=== PATIENT | female | born 1985 | race Caucasian/White ===

== ENCOUNTER 2017-04-15 11:30 | Emergency (ER) | payer MEDICARE, MEDICAID ==
[~2017-04-15 11:30] MED LIST: ADDERALL XR20 MG PO; ADDERALL10 MG PO; ADVAIR 100/501 E1 INH; ANAPROX DS550 MG PO; ASPIRIN ADULT L81 M2 PO; ATIVAN0.5 MG PO; AUGMENTIN 875 M1 TAB PO; BACTRIM DS 8001 TA1 PO; BENTYL10 MG PO; BUSPAR5 MG PO; CEPHALEXIN500 M1 PO; CIPRO500 MG PO; CLARITIN10 MG PO; CLEOCIN HCL300 MG PO; DIFLUCAN150 MG PO; DOXYCYCLINE100 M3 PO; ESTRADIOL TD; HYDROCODONE BIT1 T11 PO; MACROBID100 M1 PO; METOPROLOL SUCC25 M2 PO; MIRALAX POWDER17 G1 PO; Motrin,Rufen800 MG PO; NAPROSYN500 MG PO; NORCO 325 MG-51 TAB PO; NORCO 5-325 TA1 EACH PO; Orphenadrine C100 MG PO; PREDNISONE10 MG PO; PROVENTIL0.09 MG/A1 INH; PYRIDIUM200 MG PO; RITALIN10 MG PO; TRAMADOL HCL50 MG PO; ULTRAM50 MG PO; VALIUM10 MG PO; VENLAFAXINE HYD75 M3 PO; VIMPAT50 MG PO; XANAX0.5 MG PO; XANAX1 MG PO; ZOFRAN ODT4 MG SL; Zofran4 MG PO
[2017-04-15] MEDS ORDERED: AUGMENTIN 875875 MG PO (12:12)
== END 2017-04-15 12:28 | disposition home or self-care (01) ==
LOC: ED 11:30
DX: J02.9 Acute pharyngitis, unspecified (principal); Z91.018 Allergy to other foods; Z91.040 Latex allergy status

== ENCOUNTER 2017-07-09 12:53 | Emergency (ER) | payer MEDICAID ==
[~2017-07-09] VITALS: Ht 175.2 cm; Wt 73.9 kg
[~2017-07-09 12:53] MED LIST changes: +AUGMENTIN 875875 MG PO
[2017-07-09 13:39] LABS: BILIRUBIN NEGATIVE (NEGATIVE); BLOOD TRACE-INTACT (NEGATIVE); CLARITY SL CLOUDY (CLEAR); COLOR YELLOW (YELLOW); GLUCOSE NEGATIVE (NEGATIVE); KETONE NEGATIVE (NEGATIVE); LEUKO ESTERASE NEGATIVE (NEGATIVE); NITRITE POSITIVE (NEGATIVE); UROBILINOGEN 0.2 E.U./dl (0.2-1.0)
[2017-07-09 14:09] LABS: BACTERIA 2+; EPITHELIAL CELLS TNTC; WBC 0-2 wbc/hpf (0-5)
[2017-07-09] MEDS ORDERED: MACROBID100 M1 PO (14:28)
== END 2017-07-09 15:39 | disposition home or self-care (01) ==
LOC: ED 12:53
PROVIDERS: Nurse Practitioner Family
DX: N39.0 Urinary tract infection, site not specified (principal); F17.200 Nicotine dependence, unspecified, uncomplicated; Z90.710 Acquired absence of both cervix and uterus; Z98.51 Tubal ligation status; Z79.899 Other long term (current) drug therapy; Z79.82 Long term (current) use of aspirin; Z91.040 Latex allergy status; Z91.018 Allergy to other foods

== ENCOUNTER 2017-08-08 10:49 | Emergency (ER) | payer MEDICARE ==
[~2017-08-08] VITALS: Ht 175.2 cm; Wt 61.2 kg
[2017-08-08 11:45] LABS: BASO % 0.4 % (0.0-1.0); EOS # 0.3 10*3/uL (0.0-0.4); EOS % 3.6 % (1.0-4.0); HEMATOCRIT 40.6 % (37.0-47.0); HEMOGLOBIN 13.3 g/dl (12.0-16.0); LYMPH # 1.6 10*3/uL (1.3-4.4); LYMPH % 16.9 % (27.0-41.0); MEAN CELL VOLUME 86.8 fl (81.0-99.0); MEAN CORPUSCULAR HGB 28.4 pg (27.0-31.0); MEAN CORPUSCULAR HGB CONC 32.8 g/dl (33.0-37.0); MEAN PLATELET VOLUME 9.5 fl (9.6-12.3); MONO # 0.7 10*3/uL (0.1-1.0); MONO % 7.5 % (3.0-9.0); NEUT # 6.7 10*3/uL (2.3-7.9); NEUT % 71.4 % (47.0-73.0); PLATELET COUNT AUTOMATED 202 10*3/uL (130-400); RED BLOOD COUNT 4.68 10*6/uL (4.10-5.10); RED CELL DISTRI WIDTH 12.9 % (0-14.5); WHITE BLOOD COUNT 9.4 10*3/uL (4.8-10.8)
[2017-08-08 12:02] LABS: ALBUMIN 3.7 gm/dl (3.1-4.5); ALKALINE PHOSPHATASE 73 U/L (45-117); BUN 14 mg/dl (7-24); CHLORIDE 103 mmol/L (98-107); CREATININE 1.19 mg/dL (0.55-1.02); POTASSIUM 3.7 mmol/L (3.5-5.1); SGOT/AST 9 IU/L (3-35); SGPT/ALT 19 U/L (12-78); SODIUM 141 mmol/L (136-145); TOTAL PROTEIN 7.7 gm/dL (6.4-8.2)
[2017-08-08 12:08] LABS: BILIRUBIN NEGATIVE (NEGATIVE); BLOOD 1+ (NEGATIVE); CLARITY CLOUDY (CLEAR); COLOR YELLOW (YELLOW); GLUCOSE NEGATIVE (NEGATIVE); KETONE NEGATIVE (NEGATIVE); LEUKO ESTERASE 3+ (NEGATIVE); NITRITE POSITIVE (NEGATIVE); PH 6.5 (5.0-9.0); UROBILINOGEN 0.2 E.U./dl (0.2-1.0)
[2017-08-08 12:19] LABS: BACTERIA 3+; RBC 21-30 rbc/hpf (0-2); WBC TNTC wbc/hpf (0-5)
[2017-08-08] MEDS ORDERED: SEPTDS PO (12:49)
[2017-08-08] MEDS ORDERED: Motrin,Rufen800 MG PO (13:02)
== END 2017-08-08 13:01 | disposition home or self-care (01) ==
LOC: ED 10:49
PROVIDERS: Nurse Practitioner Family
DX: N39.0 Urinary tract infection, site not specified (principal); Z91.018 Allergy to other foods; Z91.040 Latex allergy status

== ENCOUNTER 2017-09-15 16:53 | Emergency (ER) | payer MEDICAID ==
[~2017-09-15] VITALS: Ht 175.2 cm; Wt 83.9 kg
[~2017-09-15 16:53] MED LIST changes: +SEPTDS PO
[2017-09-15 17:08] LABS: BILIRUBIN NEGATIVE (NEGATIVE); BLOOD NEGATIVE (NEGATIVE); CLARITY CLEAR (CLEAR); COLOR YELLOW (YELLOW); GLUCOSE NEGATIVE (NEGATIVE); KETONE NEGATIVE (NEGATIVE); LEUKO ESTERASE NEGATIVE (NEGATIVE); NITRITE NEGATIVE (NEGATIVE); SPECIFIC GRAVITY >= 1.030 (1.005-1.030); UROBILINOGEN 0.2 E.U./dl (0.2-1.0)
[2017-09-15 17:15] LABS: BACTERIA 2+; RBC 0-2 rbc/hpf (0-2)
[2017-09-15] MEDS ORDERED: PYRIDIUM200 M1 PO (17:32)
[2017-09-15] MEDS ORDERED: PREDNISONE20 M1 PO (17:32)
[2017-09-15] MEDS ORDERED: VALTREX500 MG PO (17:32)
== END 2017-09-15 18:24 | disposition home or self-care (01) ==
LOC: ED 16:53
PROVIDERS: Physician Assistant
DX: N39.0 Urinary tract infection, site not specified (principal); B02.9 Zoster without complications; Z91.040 Latex allergy status; Z91.018 Allergy to other foods; Z79.82 Long term (current) use of aspirin; Z79.899 Other long term (current) drug therapy; Z98.51 Tubal ligation status; Z90.710 Acquired absence of both cervix and uterus

== ENCOUNTER 2018-02-01 23:47 | Emergency (ER) | payer OTHER ==
[~2018-02-01] VITALS: Ht 175.2 cm; Wt 78.5 kg
[~2018-02-01 23:47] MED LIST changes: +PREDNISONE20 M1 PO; +PYRIDIUM200 M1 PO; +VALTREX500 MG PO
[2018-02-02 00:24] LABS: BASO # 0.1 10*3/uL (0.0-0.1); BASO % 0.6 % (0.0-1.0); EOS # 0.3 10*3/uL (0.0-0.4); HEMATOCRIT 39.2 % (37.0-47.0); HEMOGLOBIN 12.9 g/dl (12.0-16.0); LYMPH # 2.3 10*3/uL (1.3-4.4); LYMPH % 27.8 % (27.0-41.0); MEAN CELL VOLUME 85.8 fl (81.0-99.0); MEAN CORPUSCULAR HGB 28.2 pg (27.0-31.0); MEAN CORPUSCULAR HGB CONC 32.9 g/dl (33.0-37.0); MEAN PLATELET VOLUME 9.8 fl (9.6-12.3); MONO # 0.7 10*3/uL (0.1-1.0); MONO % 8.2 % (3.0-9.0); NEUT # 4.9 10*3/uL (2.3-7.9); NEUT % 59.3 % (47.0-73.0); PLATELET COUNT AUTOMATED 213 10*3/uL (130-400); RED BLOOD COUNT 4.57 10*6/uL (4.10-5.10); RED CELL DISTRI WIDTH 12.3 % (0-14.5); WHITE BLOOD COUNT 8.3 10*3/uL (4.8-10.8)
[2018-02-02 00:41] LABS: ALBUMIN 3.8 gm/dl (3.1-4.5); ALKALINE PHOSPHATASE 79 U/L (45-117); BUN 13 mg/dl (7-24); CHLORIDE 103 mmol/L (98-107); CREATININE 1.01 mg/dL (0.55-1.02); POTASSIUM 3.5 mmol/L (3.5-5.1); SGOT/AST 33 IU/L (3-35); SGPT/ALT 44 U/L (12-78); SODIUM 140 mmol/L (136-145); TOTAL PROTEIN 7.9 gm/dL (6.4-8.2)
[2018-02-02 00:42] LABS: B-hCG (QUALITATIVE) NEGATIVE (NEGATIVE)
[2018-02-02 00:44] LABS: TROPONIN I < 0.015 ng/ml (<0.045)
[2018-02-02] MEDS ORDERED: NEURONTIN300 MG PO (02:01)
== END 2018-02-02 02:31 | disposition home or self-care (01) ==
LOC: ED 23:47
PROVIDERS: Emergency Medicine Emergency Medical Services
DX: R56.9 Unspecified convulsions (principal); G89.29 Other chronic pain; I10 Essential (primary) hypertension; Z90.710 Acquired absence of both cervix and uterus; Z98.51 Tubal ligation status; Z79.899 Other long term (current) drug therapy; Z79.82 Long term (current) use of aspirin; Z91.040 Latex allergy status; Z91.018 Allergy to other foods

== ENCOUNTER 2018-02-20 20:48 | Emergency (ER) | payer OTHER ==
[~2018-02-20] VITALS: Ht 172.7 cm; Wt 77.1 kg
[~2018-02-20 20:48] MED LIST changes: +NEURONTIN300 MG PO
[2018-02-20] MEDS ORDERED: AMOXICILLIN500 M2 PO (21:36)
== END 2018-02-20 21:43 | disposition home or self-care (01) ==
LOC: ED 20:48
DX: J02.9 Acute pharyngitis, unspecified (principal); Z90.710 Acquired absence of both cervix and uterus; Z98.51 Tubal ligation status; Z79.82 Long term (current) use of aspirin; Z79.899 Other long term (current) drug therapy; Z91.040 Latex allergy status; Z91.018 Allergy to other foods

== ENCOUNTER 2018-07-15 07:25 | Emergency (ER) | payer OTHER ==
[~2018-07-15] VITALS: Ht 175.2 cm; Wt 83.0 kg
[~2018-07-15 07:25] MED LIST changes: +AMOXICILLIN500 M2 PO
[2018-07-15] MEDS ORDERED: AMOXICILLI400 MG/51 PO (09:10)
== END 2018-07-15 09:17 | disposition home or self-care (01) ==
LOC: ED 07:25
DX: J02.9 Acute pharyngitis, unspecified (principal); H92.01 Otalgia, right ear; G89.29 Other chronic pain; I10 Essential (primary) hypertension; Z91.018 Allergy to other foods; Z91.040 Latex allergy status; Z79.82 Long term (current) use of aspirin; Z79.899 Other long term (current) drug therapy; Z90.710 Acquired absence of both cervix and uterus

== ENCOUNTER 2018-11-07 07:59 | Emergency (ER) | payer MEDICARE, OTHER ==
[~2018-11-07] VITALS: Ht 175.2 cm; Wt 82.6 kg
[~2018-11-07 07:59] MED LIST changes: +AMOXICILLI400 MG/51 PO; +TRAZODONE50 MG PO; +VISTARIL25 MG PO
[2018-11-07 08:36] LABS: BASO % 0.3 % (0.0-1.0); EOS # 0.1 10*3/uL (0.0-0.4); EOS % 0.5 % (1.0-4.0); HEMATOCRIT 39.4 % (37.0-47.0); HEMOGLOBIN 13.1 g/dl (12.0-16.0); MEAN CELL VOLUME 86.8 fl (81.0-99.0); MEAN CORPUSCULAR HGB 28.9 pg (27.0-31.0); MEAN CORPUSCULAR HGB CONC 33.2 g/dl (33.0-37.0); MEAN PLATELET VOLUME 9.7 fl (9.6-12.3); MONO # 0.9 10*3/uL (0.1-1.0); MONO % 6.8 % (3.0-9.0); NEUT # 10.7 10*3/uL (2.3-7.9); PLATELET COUNT AUTOMATED 192 10*3/uL (130-400); RED BLOOD COUNT 4.54 10*6/uL (4.10-5.10); RED CELL DISTRI WIDTH 12.5 % (0-14.5); WHITE BLOOD COUNT 12.7 10*3/uL (4.8-10.8)
[2018-11-07 08:50] LABS: ALBUMIN 3.7 gm/dl (3.1-4.5); ALKALINE PHOSPHATASE 79 U/L (45-117); BUN 9 mg/dl (7-24); CHLORIDE 105 mmol/L (98-107); CREATININE 0.83 mg/dL (0.55-1.02); POTASSIUM 3.5 mmol/L (3.5-5.1); SGOT/AST 12 IU/L (3-35); SGPT/ALT 25 U/L (12-78); SODIUM 141 mmol/L (136-145); TOTAL PROTEIN 7.6 gm/dL (6.4-8.2)
[2018-11-07] MEDS ORDERED: Motrin,Rufen800 MG PO (10:17)
[2018-11-07] MEDS ORDERED: AMOXICILLIN875 MG PO (10:17)
== END 2018-11-07 10:21 | disposition home or self-care (01) ==
LOC: ED 07:59
PROVIDERS: Emergency Medicine
DX: J02.9 Acute pharyngitis, unspecified (principal); H92.01 Otalgia, right ear; I10 Essential (primary) hypertension; G89.29 Other chronic pain; Z91.040 Latex allergy status; Z91.018 Allergy to other foods; Z79.899 Other long term (current) drug therapy; Z79.82 Long term (current) use of aspirin

== ENCOUNTER 2018-11-23 15:22 | Emergency (ER) | payer MEDICARE, OTHER ==
[~2018-11-23] VITALS: Ht 175.2 cm; Wt 83.0 kg
[~2018-11-23 15:22] MED LIST changes: +AMOXICILLIN875 MG PO
[2018-11-23] MEDS ORDERED: DOXYCYCLINE100 M3 PO (16:40)
== END 2018-11-23 17:05 | disposition home or self-care (01) ==
LOC: ED 15:22
DX: J01.00 Acute maxillary sinusitis, unspecified (principal); Z91.040 Latex allergy status; Z91.018 Allergy to other foods; Z79.899 Other long term (current) drug therapy

== ENCOUNTER 2019-04-28 07:13 | Emergency (ER) | payer OTHER, MEDICARE ==
[~2019-04-28] VITALS: Ht 175.2 cm; Wt 85.3 kg
[2019-04-28] MEDS ORDERED: Motrin,Rufen400 MG PO (09:13)
[2019-04-28] MEDS ORDERED: CYCLOBENZAPRINE10 MG PO (09:13)
[2019-04-28] MEDS ORDERED: TYLENOL325 M1 PO (09:13)
== END 2019-04-28 09:22 | disposition home or self-care (01) ==
LOC: ED 07:13
DX: S06.0X0A Concussion without loss of consciousness, initial encounter (principal); S13.4XXA Sprain of ligaments of cervical spine, initial encounter; F41.9 Anxiety disorder, unspecified; I10 Essential (primary) hypertension; Z90.710 Acquired absence of both cervix and uterus; Z98.51 Tubal ligation status; Z91.040 Latex allergy status; Z79.899 Other long term (current) drug therapy; Z91.018 Allergy to other foods; Z79.82 Long term (current) use of aspirin; V49.88XA Car occupant (driver) (passenger) injured in other specified transport accidents, initial encounter; Y93.89 Activity, other specified; Y92.413 State road as the place of occurrence of the external cause; Y99.9 Unspecified external cause status

== ENCOUNTER 2019-07-31 07:54 | Emergency (ER) | payer MEDICARE, OTHER ==
[~2019-07-31] VITALS: Ht 175.2 cm; Wt 74.8 kg
[~2019-07-31 07:54] MED LIST changes: +CYCLOBENZAPRINE10 MG PO; +Motrin,Rufen400 MG PO; +TYLENOL325 M1 PO
[2019-07-31] MEDS ORDERED: IBU800 M2 PO (09:37)
[2019-07-31] MEDS ORDERED: ZOFRAN4 MG PO (09:37)
== END 2019-07-31 09:50 | disposition home or self-care (01) ==
LOC: ED 07:54
DX: S13.4XXA Sprain of ligaments of cervical spine, initial encounter (principal); I10 Essential (primary) hypertension; G89.29 Other chronic pain; M25.561 Pain in right knee; M54.5 Low back pain; Z90.710 Acquired absence of both cervix and uterus; Z98.51 Tubal ligation status; Z79.82 Long term (current) use of aspirin; Z79.899 Other long term (current) drug therapy; Z91.040 Latex allergy status; Z91.018 Allergy to other foods; V49.88XA Car occupant (driver) (passenger) injured in other specified transport accidents, initial encounter; Y93.89 Activity, other specified; Y92.413 State road as the place of occurrence of the external cause; Y99.9 Unspecified external cause status

== ENCOUNTER 2019-12-12 10:38 | Emergency (ER) | payer OTHER, MEDICARE ==
[~2019-12-12] VITALS: Ht 175.2 cm; Wt 91.2 kg
[~2019-12-12 10:38] MED LIST changes: +IBU800 M2 PO; +ZOFRAN4 MG PO
[2019-12-12] MEDS ORDERED: ROBAXIN-750750 MG PO (14:17)
[2019-12-12] MEDS ORDERED: IBUPROFEN600 MG PO (14:17)
== END 2019-12-12 14:16 | disposition home or self-care (01) ==
LOC: ED 10:38
DX: S13.4XXA Sprain of ligaments of cervical spine, initial encounter (principal); J45.909 Unspecified asthma, uncomplicated; F41.9 Anxiety disorder, unspecified; R56.9 Unspecified convulsions; G43.909 Migraine, unspecified, not intractable, without status migrainosus; Z90.710 Acquired absence of both cervix and uterus; Z91.040 Latex allergy status; Z91.018 Allergy to other foods; Z79.899 Other long term (current) drug therapy; Z79.2 Long term (current) use of antibiotics; V49.9XXA Car occupant (driver) (passenger) injured in unspecified traffic accident, initial encounter; Y93.89 Activity, other specified; Y92.410 Unspecified street and highway as the place of occurrence of the external cause; Y99.8 Other external cause status

== ENCOUNTER 2019-12-22 20:05 | Emergency (ER) | payer MEDICARE, OTHER ==
[~2019-12-22] VITALS: Ht 175.2 cm; Wt 91.2 kg
[~2019-12-22 20:05] MED LIST changes: +IBUPROFEN600 MG PO; +ROBAXIN-750750 MG PO
== END 2019-12-22 22:33 | disposition home or self-care (01) ==
LOC: ED 20:05
DX: S46.911A Strain of unspecified muscle, fascia and tendon at shoulder and upper arm level, right arm, initial encounter (principal); J45.909 Unspecified asthma, uncomplicated; G43.909 Migraine, unspecified, not intractable, without status migrainosus; G89.29 Other chronic pain; I10 Essential (primary) hypertension; F17.200 Nicotine dependence, unspecified, uncomplicated; Z91.040 Latex allergy status; Z91.018 Allergy to other foods; Z79.899 Other long term (current) drug therapy; Z79.82 Long term (current) use of aspirin; Z90.710 Acquired absence of both cervix and uterus; X50.1XXA Overexertion from prolonged static or awkward postures, initial encounter; Y93.72 Activity, wrestling; Y92.89 Other specified places as the place of occurrence of the external cause; Y99.8 Other external cause status

== ENCOUNTER 2020-06-05 09:07 | Emergency (ER) | payer MEDICARE, OTHER ==
[~2020-06-05] VITALS: Ht 175.2 cm; Wt 93.9 kg
[2020-06-05] MEDS ORDERED: TYLENOL325 M1 PO (10:11)
[2020-06-05] MEDS ORDERED: NAPROSYN500 MG PO (10:11)
== END 2020-06-05 10:59 | disposition home or self-care (01) ==
LOC: ED 09:07
DX: S93.601A Unspecified sprain of right foot, initial encounter (principal); S93.401A Sprain of unspecified ligament of right ankle, initial encounter; I10 Essential (primary) hypertension; J45.909 Unspecified asthma, uncomplicated; G43.909 Migraine, unspecified, not intractable, without status migrainosus; F17.200 Nicotine dependence, unspecified, uncomplicated; Z91.040 Latex allergy status; Z91.018 Allergy to other foods; Z79.899 Other long term (current) drug therapy; Z79.82 Long term (current) use of aspirin; W17.2XXA Fall into hole, initial encounter; Y93.89 Activity, other specified; Y92.89 Other specified places as the place of occurrence of the external cause; Y99.8 Other external cause status

== ENCOUNTER 2021-02-15 22:16 | Observation (INO) | payer MEDICARE, OTHER ==
[~2021-02-15] VITALS: Ht 175.3 cm; Wt 95.4 kg
[2021-02-15 22:21] VITALS: BP 121/72
[2021-02-15 22:43] LABS: BILIRUBIN Negative (Negative); BLOOD Negative (Negative); CLARITY Cloudy (Clear); COLOR Yellow (Yellow); GLUCOSE Negative (Negative); KETONE Negative (Negative); LEUKO ESTERASE Trace (Negative); NITRITE Negative (Negative); PH 7.5 (4.5-8.0)
[2021-02-15 22:57] LABS: EPITHELIAL CELLS TNTC
[2021-02-15 23:01] LABS: BASO % 0.5 % (0.0-1.0); EOS # 0.2 10*3/uL (0.0-0.4); EOS % 2.5 % (1.0-4.0); LYMPH # 2.4 10*3/uL (1.3-4.4); LYMPH % 29.7 % (27.0-41.0); MEAN CELL VOLUME 84.8 fl (81.0-99.0); MEAN CORPUSCULAR HGB 27.9 pg (27.0-31.0); MEAN CORPUSCULAR HGB CONC 32.9 g/dl (33.0-37.0); MONO # 0.6 10*3/uL (0.1-1.0); MONO % 7.9 % (3.0-9.0); NEUT # 4.8 10*3/uL (2.3-7.9); NEUT % 59.2 % (47.0-73.0); PLATELET COUNT AUTOMATED 246 10*3/uL (130-400); RED BLOOD COUNT 4.48 10*6/uL (4.10-5.10); RED CELL DISTRI WIDTH 12.8 % (0-14.5); WHITE BLOOD COUNT 8.1 10*3/uL (4.8-10.8)
[2021-02-15 23:17] LABS: ALBUMIN 3.5 gm/dl (3.1-4.5); ALKALINE PHOSPHATASE 89 U/L (45-117); BUN 16 mg/dl (7-24); CHLORIDE 106 mmol/L (98-107); CREATININE 0.88 mg/dL (0.55-1.02); LIPASE 108 U/L (73-393); POTASSIUM 3.7 mmol/L (3.5-5.1); SGOT/AST 24 IU/L (3-35); SGPT/ALT 36 U/L (12-78); SODIUM 141 mmol/L (136-145); TOTAL PROTEIN 7.8 gm/dL (6.4-8.2)
[2021-02-16] VITALS (9 sets, daily range): BP systolic 111–129; BP diastolic 65–80
[2021-02-16 06:10] LABS: BASO % 0.5 % (0.0-1.0); EOS # 0.2 10*3/uL (0.0-0.4); EOS % 2.7 % (1.0-4.0); HEMATOCRIT 36.6 % (37.0-47.0); LYMPH # 2.7 10*3/uL (1.3-4.4); LYMPH % 41.1 % (27.0-41.0); MEAN CELL VOLUME 85.7 fl (81.0-99.0); MEAN CORPUSCULAR HGB 28.1 pg (27.0-31.0); MEAN CORPUSCULAR HGB CONC 32.8 g/dl (33.0-37.0); MEAN PLATELET VOLUME 10.2 fl (9.6-12.3); MONO # 0.5 10*3/uL (0.1-1.0); MONO % 8.2 % (3.0-9.0); NEUT # 3.1 10*3/uL (2.3-7.9); NEUT % 47.3 % (47.0-73.0); PLATELET COUNT AUTOMATED 223 10*3/uL (130-400); RED BLOOD COUNT 4.27 10*6/uL (4.10-5.10); RED CELL DISTRI WIDTH 12.9 % (0-14.5); WHITE BLOOD COUNT 6.6 10*3/uL (4.8-10.8)
[2021-02-16 06:18] LABS: CHLORIDE 108 mmol/L (98-107); CHOLESTEROL 210 mg/dL (<200); HDL CHOLESTEROL 51 mg/dl (40-60); POTASSIUM 3.6 mmol/L (3.5-5.1); SGOT/AST 21 IU/L (3-35); SGPT/ALT 33 U/L (12-78); SODIUM 142 mmol/L (136-145)
[2021-02-16 06:28] LABS: ALBUMIN 3.3 gm/dl (3.1-4.5); ALKALINE PHOSPHATASE 81 U/L (45-117); BUN 13 mg/dl (7-24); LDL CHOLESTEROL 138 mg/dL (9-159); TOTAL PROTEIN 7.1 gm/dL (6.4-8.2); TRIGLYCERIDES 105 mg/dl (<150); VLDL CHOLESTEROL 21 mg/dL (6-40)
[2021-02-17] VITALS (7 sets, daily range): BP systolic 116–126; BP diastolic 55–75
[2021-02-17 06:19] LABS: BASO % 0.5 % (0.0-1.0); EOS # 0.2 10*3/uL (0.0-0.4); EOS % 2.9 % (1.0-4.0); HEMATOCRIT 37.3 % (37.0-47.0); LYMPH # 2.2 10*3/uL (1.3-4.4); LYMPH % 32.8 % (27.0-41.0); MEAN CELL VOLUME 85.2 fl (81.0-99.0); MEAN CORPUSCULAR HGB 27.6 pg (27.0-31.0); MEAN CORPUSCULAR HGB CONC 32.4 g/dl (33.0-37.0); MONO # 0.6 10*3/uL (0.1-1.0); MONO % 8.7 % (3.0-9.0); NEUT # 3.7 10*3/uL (2.3-7.9); NEUT % 54.9 % (47.0-73.0); PLATELET COUNT AUTOMATED 225 10*3/uL (130-400); RED BLOOD COUNT 4.38 10*6/uL (4.10-5.10); RED CELL DISTRI WIDTH 12.7 % (0-14.5); WHITE BLOOD COUNT 6.7 10*3/uL (4.8-10.8)
[2021-02-17 06:28] LABS: BUN 13 mg/dl (7-24); CHLORIDE 107 mmol/L (98-107); POTASSIUM 3.6 mmol/L (3.5-5.1); SODIUM 141 mmol/L (136-145)
[2021-02-17] MEDS ORDERED: IBU800 MG PO (12:59)
== END 2021-02-17 13:30 | disposition home or self-care (01) ==
LOC: ED 22:16 → EDHOLD 02-16 02:05 → 4E 02-16 02:05
PROVIDERS: Emergency Medicine; Hospitalist; Internal Medicine; ADMIT Internal Medicine; ATTEND Internal Medicine
DX: K80.10 Calculus of gallbladder with chronic cholecystitis without obstruction (principal); K29.70 Gastritis, unspecified, without bleeding; F41.9 Anxiety disorder, unspecified; F31.9 Bipolar disorder, unspecified; E83.41 Hypermagnesemia; E66.9 Obesity, unspecified; E78.5 Hyperlipidemia, unspecified; Z68.31 Body mass index [BMI] 31.0-31.9, adult; M54.5 Low back pain; Z95.1 Presence of aortocoronary bypass graft; Z90.710 Acquired absence of both cervix and uterus

== ENCOUNTER 2021-05-30 16:45 | Emergency (ER) | payer MEDICARE, OTHER ==
[~2021-05-30] VITALS: Ht 175.2 cm; Wt 90.7 kg
[~2021-05-30 16:45] MED LIST changes: +IBU800 MG PO
[2021-05-30 17:46] LABS: BASO % 0.2 % (0.0-1.0); EOS # 0.1 10*3/uL (0.0-0.4); EOS % 1.1 % (1.0-4.0); HEMATOCRIT 39.5 % (37.0-47.0); LYMPH # 1.2 10*3/uL (1.3-4.4); LYMPH % 10.1 % (27.0-41.0); MEAN CORPUSCULAR HGB 28.1 pg (27.0-31.0); MEAN CORPUSCULAR HGB CONC 31.9 g/dl (33.0-37.0); MEAN PLATELET VOLUME 10.1 fl (9.6-12.3); MONO # 0.6 10*3/uL (0.1-1.0); MONO % 4.9 % (3.0-9.0); NEUT # 10.1 10*3/uL (2.3-7.9); NEUT % 83.3 % (47.0-73.0); PLATELET COUNT AUTOMATED 232 10*3/uL (130-400); RED BLOOD COUNT 4.49 10*6/uL (4.10-5.10); WHITE BLOOD COUNT 12.1 10*3/uL (4.8-10.8)
[2021-05-30 18:04] LABS: ALBUMIN 4.2 gm/dl (3.1-4.5); ALKALINE PHOSPHATASE 85 U/L (45-117); BUN 12 mg/dl (7-24); CHLORIDE 107 mmol/L (98-107); CREATININE 0.75 mg/dL (0.55-1.02); LIPASE 96 U/L (73-393); POTASSIUM 3.5 mmol/L (3.5-5.1); SGOT/AST 14 IU/L (3-35); SGPT/ALT 25 U/L (12-78); SODIUM 139 mmol/L (136-145); TOTAL PROTEIN 7.9 gm/dL (6.4-8.2)
[2021-05-30 18:08] LABS: TROPONIN I < 0.015 ng/ml (<0.045)
== END 2021-05-30 23:39 | disposition left against medical advice (07) ==
LOC: ED 16:45
PROVIDERS: Emergency Medicine
DX: F41.9 Anxiety disorder, unspecified (principal); R07.89 Other chest pain; Z91.018 Allergy to other foods; Z79.899 Other long term (current) drug therapy; Z79.82 Long term (current) use of aspirin; Z90.711 Acquired absence of uterus with remaining cervical stump; Z98.51 Tubal ligation status

== ENCOUNTER 2022-03-12 17:07 | Emergency (ER) | payer MEDICARE, MEDICAID ==
[~2022-03-12] VITALS: Ht 175.2 cm; Wt 97.5 kg
== END 2022-03-12 17:35 | disposition left against medical advice (07) ==
LOC: ED 17:07
DX: Z53.21 Procedure and treatment not carried out due to patient leaving prior to being seen by health care provider (principal)

== ENCOUNTER 2022-05-11 16:46 | Emergency (ER) | payer MEDICAID ==
[~2022-05-11] VITALS: Ht 175.2 cm; Wt 97.5 kg
[2022-05-11] MEDS ORDERED: KEPPRA100 MG/1 M PO (17:02)
[2022-05-11] MEDS ORDERED: ZOLOFT50 MG PO (18:09)
[2022-05-11] MEDS ORDERED: ADDERALL15 MG PO (18:09)
[2022-05-11] MEDS ORDERED: ZANAFLEX CAPSULE4 MG PO (18:09)
[2022-05-11] MEDS ORDERED: REXULTI3 MG PO (18:09)
[2022-05-11 18:31] LABS: BASO % 0.5 % (0.0-1.0); EOS # 0.1 10*3/uL (0.0-0.4); EOS % 1.7 % (1.0-4.0); LYMPH # 1.9 10*3/uL (1.3-4.4); LYMPH % 29.3 % (27.0-41.0); MEAN CELL VOLUME 85.3 fl (81.0-99.0); MEAN CORPUSCULAR HGB 28.4 pg (27.0-31.0); MEAN CORPUSCULAR HGB CONC 33.3 g/dl (33.0-37.0); MEAN PLATELET VOLUME 10.3 fl (9.6-12.3); MONO # 0.5 10*3/uL (0.1-1.0); MONO % 8.1 % (3.0-9.0); NEUT # 3.9 10*3/uL (2.3-7.9); NEUT % 60.2 % (47.0-73.0); PLATELET COUNT AUTOMATED 204 10*3/uL (130-400); RED BLOOD COUNT 4.69 10*6/uL (4.10-5.10); RED CELL DISTRI WIDTH 12.5 % (0-14.5); WHITE BLOOD COUNT 6.4 10*3/uL (4.8-10.8)
[2022-05-11 18:52] LABS: ALKALINE PHOSPHATASE 77 U/L (45-117); BUN 10 mg/dl (7-24); CHLORIDE 109 mmol/L (98-107); POTASSIUM 3.4 mmol/L (3.5-5.1); SGOT/AST 22 IU/L (3-35); SGPT/ALT 28 U/L (12-78); SODIUM 140 mmol/L (136-145); TOTAL PROTEIN 7.6 gm/dL (6.4-8.2)
[2022-05-11] MEDS ORDERED: KEPPRA1000 MG PO ×3 (19:20→19:43)
[2022-05-11] MEDS ORDERED: ONDANSETRON4 MG SL (19:43)
[2022-05-12] MEDS ORDERED: ONDANSETRON4 MG SL (09:17)
[2022-05-12] MEDS ORDERED: KEPPRA1000 MG PO (09:19)
== END 2022-05-11 19:35 | disposition home or self-care (01) ==
LOC: ED 16:46
PROVIDERS: Nurse Practitioner Family
DX: R56.9 Unspecified convulsions (principal); Z91.040 Latex allergy status; Z91.018 Allergy to other foods; Z79.899 Other long term (current) drug therapy; Z98.51 Tubal ligation status; Z90.710 Acquired absence of both cervix and uterus

== ENCOUNTER 2022-11-06 12:10 | Emergency (ER) | payer OTHER ==
[~2022-11-06] VITALS: Ht 175.2 cm; Wt 99.8 kg
[~2022-11-06 12:10] MED LIST changes: +ADDERALL15 MG PO; +KEPPRA100 MG/1 M PO; +KEPPRA1000 MG PO; +ONDANSETRON4 MG SL; +REXULTI3 MG PO; +ZANAFLEX CAPSULE4 MG PO; +ZOLOFT50 MG PO
[2022-11-06 12:53] LABS: BASO % 0.4 % (0.0-1.0); EOS # 0.1 10*3/uL (0.0-0.4); EOS % 2.8 % (1.0-4.0); HEMATOCRIT 39.8 % (37.0-47.0); LYMPH # 1.4 10*3/uL (1.3-4.4); LYMPH % 29.8 % (27.0-41.0); MEAN CELL VOLUME 85.4 fl (81.0-99.0); MEAN CORPUSCULAR HGB 28.5 pg (27.0-31.0); MEAN CORPUSCULAR HGB CONC 33.4 g/dl (33.0-37.0); MEAN PLATELET VOLUME 9.9 fl (9.6-12.3); MONO # 0.4 10*3/uL (0.1-1.0); MONO % 7.8 % (3.0-9.0); NEUT # 2.7 10*3/uL (2.3-7.9); NEUT % 58.8 % (47.0-73.0); PLATELET COUNT AUTOMATED 192 10*3/uL (130-400); RED BLOOD COUNT 4.66 10*6/uL (4.10-5.10); RED CELL DISTRI WIDTH 13.2 % (0-14.5); WHITE BLOOD COUNT 4.6 10*3/uL (4.8-10.8)
[2022-11-06 13:11] LABS: ALKALINE PHOSPHATASE 69 U/L (46-116); BUN 12 mg/dl (9-23); CHLORIDE 105 mmol/L (98-107); POTASSIUM 3.8 mmol/L (3.4-5.1); SGPT/ALT 25 U/L (10-49); TOTAL PROTEIN 7.1 gm/dL (6.0-8.0)
[2022-11-06] MEDS ORDERED: VIBRAMYCIN100 MG PO (13:36)
== END 2022-11-06 13:41 | disposition home or self-care (01) ==
LOC: ED 12:10
PROVIDERS: Nurse Practitioner Family
DX: L02.416 Cutaneous abscess of left lower limb (principal); Z91.041 Radiographic dye allergy status; Z91.018 Allergy to other foods; Z90.710 Acquired absence of both cervix and uterus; Z98.51 Tubal ligation status; F12.90 Cannabis use, unspecified, uncomplicated

== ENCOUNTER 2023-06-03 16:53 | Emergency (ER) | payer OTHER ==
[~2023-06-03] VITALS: Wt 99.8 kg
[~2023-06-03 16:53] MED LIST changes: +VIBRAMYCIN100 MG PO
[2023-06-03] MEDS ORDERED: NAPROSYN500 MG PO (19:44)
[2023-06-03] MEDS ORDERED: CYCLOBENZAPRINE5 M3 PO (19:44)
== END 2023-06-03 19:47 | disposition home or self-care (01) ==
LOC: ED 16:53
DX: M54.2 Cervicalgia (principal); M25.511 Pain in right shoulder; Z91.040 Latex allergy status; Z91.018 Allergy to other foods; Z90.710 Acquired absence of both cervix and uterus; Z98.51 Tubal ligation status; F12.90 Cannabis use, unspecified, uncomplicated

== ENCOUNTER → 2023-06-25 | Day surgery (SDC) | payer OTHER ==
[2023-06-21 13:09] VITALS: BP 118/61
[2023-06-21 14:09] LABS: BASO % 0.6 % (0.0-1.0); EOS # 0.2 10*3/uL (0.0-0.4); EOS % 2.8 % (1.0-4.0); HEMATOCRIT 39.3 % (37.0-47.0); LYMPH # 1.9 10*3/uL (1.3-4.4); LYMPH % 29.8 % (27.0-41.0); MEAN CELL VOLUME 85.1 fl (81.0-99.0); MEAN CORPUSCULAR HGB 28.4 pg (27.0-31.0); MEAN CORPUSCULAR HGB CONC 33.3 g/dl (33.0-37.0); MEAN PLATELET VOLUME 9.9 fl (9.6-12.3); MONO # 0.4 10*3/uL (0.1-1.0); MONO % 6.9 % (3.0-9.0); NEUT # 3.8 10*3/uL (2.3-7.9); NEUT % 59.7 % (47.0-73.0); PLATELET COUNT AUTOMATED 217 10*3/uL (130-400); RED BLOOD COUNT 4.62 10*6/uL (4.10-5.10); WHITE BLOOD COUNT 6.3 10*3/uL (4.8-10.8)
[2023-06-21 14:21] LABS: ACT PARTIAL THROMBO TIME 25.9 SECONDS (20.0-32.1)
[~2023-06-25] VITALS: Ht 175.2 cm; Wt 96.2 kg
[~2023-06-25] MED LIST changes: +'CLONIDINE0.1 MG PO; +CEFDINIR250 MG/5 M PO; +CYCLOBENZAPRINE5 M3 PO; +HYDROCODON-ACE118 ML PO; +HYDROXYZINE PAM50 MG PO; +MINIPRESS2 M1 PO; +MYRBETRIQ25 M1 PO; +PAXIL20 M1 PO
[2023-06-25 10:00] VITALS: BP 114/69
[2023-06-25 10:15] VITALS: BP 134/84
[2023-06-25 10:30] VITALS: BP 142/95
[2023-06-25 10:45] VITALS: BP 132/79
[2023-06-25 11:00] VITALS: BP 138/85
== END ==
LOC: SDC 06-21 13:15
PROVIDERS: ATTEND Specialist
DX: J35.01 Chronic tonsillitis (principal); J03.01 Acute recurrent streptococcal tonsillitis; F31.9 Bipolar disorder, unspecified; G43.909 Migraine, unspecified, not intractable, without status migrainosus; F17.200 Nicotine dependence, unspecified, uncomplicated; Z90.49 Acquired absence of other specified parts of digestive tract; Z90.710 Acquired absence of both cervix and uterus; Z98.890 Other specified postprocedural states

== ENCOUNTER 2023-06-27 16:11 | Emergency (ER) | payer OTHER ==
[~2023-06-27] VITALS: Ht 175.2 cm; Wt 96.2 kg
[~2023-06-27 16:11] MED LIST changes: -'CLONIDINE0.1 MG PO; -CEFDINIR250 MG/5 M PO; -HYDROCODON-ACE118 ML PO; -HYDROXYZINE PAM50 MG PO; -MINIPRESS2 M1 PO; -MYRBETRIQ25 M1 PO
[2023-06-27 17:31] LABS: BASO % 0.4 % (0.0-1.0); EOS # 0.2 10*3/uL (0.0-0.4); EOS % 1.4 % (1.0-4.0); HEMATOCRIT 41.7 % (37.0-47.0); LYMPH # 1.9 10*3/uL (1.3-4.4); MEAN CELL VOLUME 84.9 fl (81.0-99.0); MEAN CORPUSCULAR HGB 28.5 pg (27.0-31.0); MEAN CORPUSCULAR HGB CONC 33.6 g/dl (33.0-37.0); MEAN PLATELET VOLUME 9.9 fl (9.6-12.3); MONO # 1.2 10*3/uL (0.1-1.0); MONO % 10.7 % (3.0-9.0); NEUT % 70.3 % (47.0-73.0); PLATELET COUNT AUTOMATED 246 10*3/uL (130-400); RED BLOOD COUNT 4.91 10*6/uL (4.10-5.10); RED CELL DISTRI WIDTH 12.8 % (0-14.5); WHITE BLOOD COUNT 11.4 10*3/uL (4.8-10.8)
[2023-06-27 17:51] LABS: ALKALINE PHOSPHATASE 106 U/L (46-116); BUN 10 mg/dl (9-23); CHLORIDE 101 mmol/L (98-107); POTASSIUM 3.4 mmol/L (3.4-5.1); SGPT/ALT 52 U/L (10-49); TOTAL PROTEIN 8.4 gm/dL (6.0-8.0)
[2023-06-27] MEDS ORDERED: CEFDINIR250 MG/5 M PO (17:51)
[2023-06-27] MEDS ORDERED: MYRBETRIQ25 M1 PO (17:51)
[2023-06-27] MEDS ORDERED: HYDROCODON-ACE118 ML PO (17:53)
[2023-06-27] MEDS ORDERED: 'CLONIDINE0.1 MG PO (17:53)
[2023-06-27] MEDS ORDERED: HYDROXYZINE PAM50 MG PO (17:54)
[2023-06-27] MEDS ORDERED: MINIPRESS2 M1 PO (17:55)
== END 2023-06-27 19:38 | disposition home or self-care (01) ==
LOC: ED 16:11
PROVIDERS: Nurse Practitioner Family
DX: G89.18 Other acute postprocedural pain (principal); R07.0 Pain in throat; R50.9 Fever, unspecified; R13.10 Dysphagia, unspecified; F90.9 Attention-deficit hyperactivity disorder, unspecified type; F32.A Depression, unspecified; Z91.040 Latex allergy status; Z91.018 Allergy to other foods; Z79.899 Other long term (current) drug therapy; Z79.2 Long term (current) use of antibiotics; Z90.711 Acquired absence of uterus with remaining cervical stump; Z98.51 Tubal ligation status; Z90.89 Acquired absence of other organs

== ENCOUNTER 2023-06-30 00:46 | Emergency (ER) | payer OTHER ==
[~2023-06-30] VITALS: Ht 175.2 cm; Wt 96.2 kg
[~2023-06-30 00:46] MED LIST changes: +'CLONIDINE0.1 MG PO; +CEFDINIR250 MG/5 M PO; +HYDROCODON-ACE118 ML PO; +HYDROXYZINE PAM50 MG PO; +MINIPRESS2 M1 PO; +MYRBETRIQ25 M1 PO
[2023-06-30 01:15] LABS: BASO # 0.1 10*3/uL (0.0-0.1); BASO % 0.5 % (0.0-1.0); EOS # 0.2 10*3/uL (0.0-0.4); HEMATOCRIT 37.7 % (37.0-47.0); LYMPH # 1.5 10*3/uL (1.3-4.4); LYMPH % 14.7 % (27.0-41.0); MEAN CELL VOLUME 82.7 fl (81.0-99.0); MEAN CORPUSCULAR HGB 28.3 pg (27.0-31.0); MEAN CORPUSCULAR HGB CONC 34.2 g/dl (33.0-37.0); MEAN PLATELET VOLUME 9.7 fl (9.6-12.3); MONO # 0.9 10*3/uL (0.1-1.0); MONO % 8.3 % (3.0-9.0); NEUT # 7.7 10*3/uL (2.3-7.9); NEUT % 74.3 % (47.0-73.0); PLATELET COUNT AUTOMATED 306 10*3/uL (130-400); RED BLOOD COUNT 4.56 10*6/uL (4.10-5.10); RED CELL DISTRI WIDTH 12.4 % (0-14.5); WHITE BLOOD COUNT 10.4 10*3/uL (4.8-10.8)
[2023-06-30 01:26] LABS: ACT PARTIAL THROMBO TIME 24.9 SECONDS (20.0-32.1)
[2023-06-30 01:39] LABS: ALKALINE PHOSPHATASE 100 U/L (46-116); BUN 17 mg/dl (9-23); CHLORIDE 106 mmol/L (98-107); LIPASE 34 U/L (12-53); POTASSIUM 3.2 mmol/L (3.4-5.1); SGPT/ALT 37 U/L (10-49); TOTAL PROTEIN 7.7 gm/dL (6.0-8.0)
[2023-06-30] MEDS ORDERED: ONDANSETRON4 MG SL (03:53)
== END 2023-06-30 04:20 | disposition home or self-care (01) ==
LOC: ED 00:46
PROVIDERS: Internal Medicine
DX: K92.0 Hematemesis (principal); R13.10 Dysphagia, unspecified; J45.909 Unspecified asthma, uncomplicated; F41.9 Anxiety disorder, unspecified; G43.909 Migraine, unspecified, not intractable, without status migrainosus; F90.9 Attention-deficit hyperactivity disorder, unspecified type; F31.9 Bipolar disorder, unspecified; Z91.040 Latex allergy status; Z91.018 Allergy to other foods; Z90.710 Acquired absence of both cervix and uterus; Z98.51 Tubal ligation status; Z90.89 Acquired absence of other organs; F12.90 Cannabis use, unspecified, uncomplicated; F17.200 Nicotine dependence, unspecified, uncomplicated

== ENCOUNTER 2024-01-20 15:14 | Emergency (ER) | payer OTHER ==
[~2024-01-20] VITALS: Ht 175.2 cm; Wt 90.7 kg
[2024-01-20 15:56] LABS: BILIRUBIN Negative (Negative); BLOOD Negative (Negative); CLARITY Clear (Clear); COLOR Yellow (Yellow); GLUCOSE Negative (Negative); KETONE Trace (Negative); LEUKO ESTERASE Negative (Negative); NITRITE Negative (Negative); SPECIFIC GRAVITY 1.025 (1.001-1.030)
[2024-01-20 16:51] LABS: RBC 0-2 rbc/hpf (0-2)
== END 2024-01-20 17:42 | disposition home or self-care (01) ==
LOC: ED 15:14
PROVIDERS: Nurse Practitioner Family
DX: R39.15 Urgency of urination (principal); R30.0 Dysuria; M54.50 Low back pain, unspecified; R35.0 Frequency of micturition; E78.5 Hyperlipidemia, unspecified; F41.9 Anxiety disorder, unspecified; F31.9 Bipolar disorder, unspecified; I10 Essential (primary) hypertension; F17.200 Nicotine dependence, unspecified, uncomplicated; Z91.040 Latex allergy status; Z91.018 Allergy to other foods; Z79.899 Other long term (current) drug therapy; Z79.2 Long term (current) use of antibiotics; Z85.41 Personal history of malignant neoplasm of cervix uteri; Z90.711 Acquired absence of uterus with remaining cervical stump; Z98.51 Tubal ligation status

== ENCOUNTER 2024-04-01 10:28 | Emergency (ER) | payer OTHER ==
[~2024-04-01] VITALS: Ht 172.7 cm; Wt 102.1 kg
[2024-04-01] MEDS ORDERED: IBUPROFEN 800 MG TAB PO ONE (11:15)
[2024-04-01] MEDS ORDERED: MEDROL DOSEPAK4 MG PO (13:08)
== END 2024-04-01 13:19 | disposition home or self-care (01) ==
LOC: ED 10:28
DX: J02.8 Acute pharyngitis due to other specified organisms (principal); Z20.822 Contact with and (suspected) exposure to COVID-19; B97.89 Other viral agents as the cause of diseases classified elsewhere; Z91.040 Latex allergy status; Z91.018 Allergy to other foods; Z79.899 Other long term (current) drug therapy; Z90.711 Acquired absence of uterus with remaining cervical stump; Z98.51 Tubal ligation status

== ENCOUNTER 2024-04-11 20:49 | Emergency (ER) | payer OTHER ==
[~2024-04-11] VITALS: Ht 175.2 cm; Wt 99.8 kg
[~2024-04-11 20:49] MED LIST changes: +MEDROL DOSEPAK4 MG PO
[2024-04-11] MEDS ORDERED: Acetaminophen/Hydrocodone 5 MG/325 MG TABLET PO ONE (21:15)
[2024-04-11] MEDS ORDERED: methylPREDNISolone sod succ 125 MG VIAL IM ONE (22:05)
== END 2024-04-11 22:22 | disposition home or self-care (01) ==
LOC: ED 20:49
DX: M72.2 Plantar fascial fibromatosis (principal); E78.5 Hyperlipidemia, unspecified; F31.9 Bipolar disorder, unspecified; I10 Essential (primary) hypertension; F41.9 Anxiety disorder, unspecified; Z79.899 Other long term (current) drug therapy; Z90.711 Acquired absence of uterus with remaining cervical stump; Z98.51 Tubal ligation status

== ENCOUNTER → 2024-05-06 | Outpatient (CLI) | payer OTHER ==
[2024-05-06 16:03] LABS: BASO % 0.6 % (0.0-1.0); EOS # 0.1 10*3/uL (0.0-0.4); EOS % 1.9 % (1.0-4.0); HEMATOCRIT 39.2 % (37.0-47.0); LYMPH # 1.5 10*3/uL (1.3-4.4); LYMPH % 22.9 % (27.0-41.0); MEAN CELL VOLUME 84.8 fl (81.0-99.0); MEAN CORPUSCULAR HGB 27.9 pg (27.0-31.0); MEAN CORPUSCULAR HGB CONC 32.9 g/dl (33.0-37.0); MEAN PLATELET VOLUME 9.5 fl (9.6-12.3); MONO # 0.5 10*3/uL (0.1-1.0); MONO % 6.8 % (3.0-9.0); NEUT # 4.5 10*3/uL (2.3-7.9); NEUT % 67.5 % (47.0-73.0); PLATELET COUNT AUTOMATED 213 10*3/uL (130-400); RED BLOOD COUNT 4.62 10*6/uL (4.10-5.10); RED CELL DISTRI WIDTH 13.2 % (0-14.5); WHITE BLOOD COUNT 6.7 10*3/uL (4.8-10.8)
[2024-05-06 16:30] LABS: ALKALINE PHOSPHATASE 90 U/L (46-116); BUN 12 mg/dl (9-23); CHLORIDE 104 mmol/L (98-107); POTASSIUM 3.3 mmol/L (3.4-5.1); SGPT/ALT 33 U/L (5-49); TOTAL PROTEIN 7.7 gm/dL (6.0-8.0)
[2024-05-06 17:29] LABS: ACT PARTIAL THROMBO TIME 23.3 SECONDS (20.0-32.1)
[2024-05-08 03:07] LABS: FACTOR VIII ACTIVITY 199 % (56-140); VON WILLEBRAND FACTOR AG 197 % (50-200)
[2024-05-08 06:09] LABS: VON WILLEBRAND ACTIVITY 123 % (50-200)
== END | disposition home or self-care (01) ==
LOC: LAB 15:41
PROVIDERS: ATTEND Internal Medicine
DX: R23.8 Other skin changes (principal)

== ENCOUNTER 2024-06-18 14:56 | Emergency (ER) | payer OTHER ==
[~2024-06-18] VITALS: Ht 175.2 cm; Wt 95.3 kg
[2024-06-18] MEDS ORDERED: PREDNISONE50 MG PO (16:15)
[2024-06-18] MEDS ORDERED: METHOCARBAMOL500 M1 PO (16:15)
[2024-06-18] MEDS ORDERED: methylPREDNISolone sod succ 125 MG VIAL IM ONE (16:15)
[2024-06-18] MEDS ORDERED: Ketorolac Tromethamine 30 MG/ML VIAL IM ONE (16:15)
== END 2024-06-18 16:23 | disposition home or self-care (01) ==
LOC: ED 14:56
DX: S39.012A Strain of muscle, fascia and tendon of lower back, initial encounter (principal); Z79.899 Other long term (current) drug therapy; Z90.710 Acquired absence of both cervix and uterus; Z98.51 Tubal ligation status; X50.9XXA Other and unspecified overexertion or strenuous movements or postures, initial encounter; Y93.89 Activity, other specified; Y92.89 Other specified places as the place of occurrence of the external cause; Y99.8 Other external cause status

== ENCOUNTER → 2024-06-25 | Outpatient (CLI) | payer OTHER ==
[~2024-06-25] MED LIST changes: +METHOCARBAMOL500 M1 PO; +PREDNISONE50 MG PO
== END | disposition home or self-care (01) ==
LOC: RAD 13:52
PROVIDERS: ATTEND Internal Medicine
DX: M54.50 Low back pain, unspecified (principal)

== ENCOUNTER 2025-02-01 13:13 | Emergency (ER) | payer OTHER ==
[2025-02-01] MEDS ORDERED: Ondansetron Hydrochloride 4 MG/2 ML VIAL IV ONE (13:20)
[2025-02-01 13:34] LABS: BASO % 0.4 % (0.0-1.0); EOS # 0.1 10*3/uL (0.0-0.4); EOS % 2.1 % (1.0-4.0); HEMATOCRIT 37.9 % (37.0-47.0); MEAN CELL VOLUME 84.4 fl (81.0-99.0); MEAN CORPUSCULAR HGB 27.4 pg (27.0-31.0); MEAN CORPUSCULAR HGB CONC 32.5 g/dl (33.0-37.0); MEAN PLATELET VOLUME 9.7 fl (9.6-12.3); MONO # 0.4 10*3/uL (0.1-1.0); MONO % 7.9 % (3.0-9.0); NEUT # 2.9 10*3/uL (2.3-7.9); NEUT % 56.4 % (47.0-73.0); PLATELET COUNT AUTOMATED 189 10*3/uL (130-400); RED BLOOD COUNT 4.49 10*6/uL (4.10-5.10); RED CELL DISTRI WIDTH 12.8 % (0-14.5); WHITE BLOOD COUNT 5.2 10*3/uL (4.8-10.8)
[2025-02-01] MEDS ORDERED: IOHEXOL 300 MG/ML 100 ML VIAL IV ONE (13:35)
[2025-02-01 13:59] LABS: ALKALINE PHOSPHATASE 79 U/L (46-116); BUN 10 mg/dl (9-23); CHLORIDE 105 mmol/L (98-107); LIPASE 31 U/L (12-53); POTASSIUM 3.7 mmol/L (3.4-5.1); SGPT/ALT 25 U/L (5-49); TOTAL PROTEIN 7.4 gm/dL (6.0-8.0)
[2025-02-01 15:00] LABS: BILIRUBIN Negative (Negative); BLOOD Negative (Negative); CLARITY Clear (Clear); COLOR Yellow (Yellow); GLUCOSE Negative (Negative); KETONE Negative (Negative); LEUKO ESTERASE Negative (Negative); NITRITE Negative (Negative); SPECIFIC GRAVITY >= 1.030 (1.001-1.030); UROBILINOGEN 0.2 E.U./dl (0.0-1.0)
[2025-02-01 15:22] LABS: EPITHELIAL CELLS 16-20; RBC 0-2 rbc/hpf (0-2); WBC 0-2 wbc/hpf (0-5)
== END 2025-02-01 16:08 | disposition home or self-care (01) ==
LOC: ED 13:13
PROVIDERS: Nurse Practitioner Family
DX: S16.1XXA Strain of muscle, fascia and tendon at neck level, initial encounter (principal); S46.912A Strain of unspecified muscle, fascia and tendon at shoulder and upper arm level, left arm, initial encounter; R42 Dizziness and giddiness; R10.12 Left upper quadrant pain; R11.0 Nausea; E78.5 Hyperlipidemia, unspecified; J45.909 Unspecified asthma, uncomplicated; F41.9 Anxiety disorder, unspecified; G43.909 Migraine, unspecified, not intractable, without status migrainosus; F90.9 Attention-deficit hyperactivity disorder, unspecified type; F31.9 Bipolar disorder, unspecified; Z90.710 Acquired absence of both cervix and uterus; Z90.49 Acquired absence of other specified parts of digestive tract; Z90.89 Acquired absence of other organs; Z79.899 Other long term (current) drug therapy; Z90.711 Acquired absence of uterus with remaining cervical stump; V49.9XXA Car occupant (driver) (passenger) injured in unspecified traffic accident, initial encounter; Y93.89 Activity, other specified; Y92.89 Other specified places as the place of occurrence of the external cause; Y99.8 Other external cause status

== ENCOUNTER 2025-08-15 20:15 | Emergency (ER) | payer OTHER ==
[2025-08-15 20:57] LABS: BASO # 0.0 10*3/uL (0.0-0.1); BASO % 0.5 % (0.0-1.0); EOS # 0.1 10*3/uL (0.0-0.4); EOS % 1.6 % (1.0-4.0); MEAN CELL VOLUME 87.9 fl (81.0-99.0); MEAN CORPUSCULAR HGB 28.1 pg (27.0-31.0); MEAN PLATELET VOLUME 9.7 fl (9.6-12.3); MONO # 0.5 10*3/uL (0.1-1.0); MONO % 7.1 % (3.0-9.0); NEUT # 4.2 10*3/uL (2.3-7.9); NEUT % 65.8 % (47.0-73.0); NUCLEATED RED BLOOD CELL 0.0 % (0.0-0.0); NUCLEATED RED BLOOD CELL 0.0 10*3/uL (0.0-0.0); PLATELET COUNT AUTOMATED 197 10*3/uL (130-400); RED CELL DISTRI WIDTH 13.8 % (0-14.5)
[2025-08-15 21:16] LABS: BUN 11 mg/dl (9-23)
== END 2025-08-15 22:19 | disposition home or self-care (01) ==
LOC: ED 20:15
PROVIDERS: Nurse Practitioner Family
DX: M79.602 Pain in left arm (principal); J45.909 Unspecified asthma, uncomplicated; F41.9 Anxiety disorder, unspecified; F90.9 Attention-deficit hyperactivity disorder, unspecified type; F31.9 Bipolar disorder, unspecified; G43.909 Migraine, unspecified, not intractable, without status migrainosus; Z90.710 Acquired absence of both cervix and uterus; Z98.51 Tubal ligation status; Z91.040 Latex allergy status; Z91.018 Allergy to other foods; Z90.89 Acquired absence of other organs

== ENCOUNTER 2025-08-26 16:07 | Emergency (ER) | payer OTHER ==
[~2025-08-26] VITALS: Ht 175.2 cm; Wt 115.7 kg
[2025-08-26 16:56] LABS: BASO # 0.0 10*3/uL (0.0-0.1); BASO % 0.5 % (0.0-1.0); EOS # 0.2 10*3/uL (0.0-0.4); EOS % 2.2 % (1.0-4.0); MEAN CELL VOLUME 86.5 fl (81.0-99.0); MEAN CORPUSCULAR HGB 28.5 pg (27.0-31.0); MEAN PLATELET VOLUME 9.3 fl (9.6-12.3); MONO # 0.8 10*3/uL (0.1-1.0); MONO % 9.4 % (3.0-9.0); NEUT # 6.1 10*3/uL (2.3-7.9); NEUT % 69.9 % (47.0-73.0); NUCLEATED RED BLOOD CELL 0.0 % (0.0-0.0); NUCLEATED RED BLOOD CELL 0.0 10*3/uL (0.0-0.0); PLATELET COUNT AUTOMATED 270 10*3/uL (130-400); RED CELL DISTRI WIDTH 13.2 % (0-14.5)
[2025-08-26 17:20] LABS: BUN 8 mg/dl (9-23)
[2025-08-26] MEDS ORDERED: PREDNISONE20 M1 PO (17:45)
[2025-08-26] MEDS ORDERED: BENZONATATE100 M1 PO (17:45)
[2025-08-26] MEDS ORDERED: AVPAK AZITHROM250 M1 PO (17:45)
[2025-08-26] MEDS ORDERED: AZITHROMYCIN 250 MG TAB PO ONE (17:50)
[2025-08-26] MEDS ORDERED: POTASSIUM CHLORIDE 20 MEQ TAB PO ONE (17:50)
== END 2025-08-26 17:48 | disposition home or self-care (01) ==
LOC: ED 16:07
PROVIDERS: Nurse Practitioner Family
DX: J45.909 Unspecified asthma, uncomplicated (principal); E87.6 Hypokalemia; H92.03 Otalgia, bilateral; F41.9 Anxiety disorder, unspecified; F31.9 Bipolar disorder, unspecified; E78.5 Hyperlipidemia, unspecified; F90.9 Attention-deficit hyperactivity disorder, unspecified type; G43.909 Migraine, unspecified, not intractable, without status migrainosus; Z68.31 Body mass index [BMI] 31.0-31.9, adult; Z91.018 Allergy to other foods; Z91.040 Latex allergy status; Z90.710 Acquired absence of both cervix and uterus; Z98.51 Tubal ligation status; Z90.89 Acquired absence of other organs